=== PATIENT | male | born 1975 | race Caucasian/White ===

== ENCOUNTER 2019-03-04 18:37 | Inpatient (IN) | payer OTHER ==
[~2019-03-04] VITALS: Ht 185.4 cm; Wt 74.1 kg
--- NOTE | 2019-03-04 19:07 | NUR ---
Patient came in to the ER c/o chest pain sharp, x 3 days, on room air breathing evenly and unlabored. non radiating pain. Connected to the monitor and pulse ox. Kept comfortable, will continue to monitor accordingly.
--- NOTE | 2019-03-04 19:08 | NUR ---
blood drawned and sent to lab
[2019-03-04 19:23] LABS: BASOPHILS # (AUTO) 0.1 /CMM (0.0-0.2); BASOPHILS % (AUTO) 1.1 % (0.0-2.0); EOSINOPHILS % (AUTO) 1.5 % (0.0-6.0); HEMATOCRIT 44 % (39-51); HEMOGLOBIN 14.7 g/dL (13.5-17.5); LYMPHOCYTES # (AUTO) 2.4 /CMM (0.8-4.8); LYMPHOCYTES % (AUTO) 31.4 % (20.0-44.0); MEAN CORPUSCULAR HGB CONC 34 g/dl (31.0-36.0); MEAN CORPUSCULAR VOLUME 84 fL (80-96); MONOCYTES # (AUTO) 0.7 /CMM (0.1-1.30); MONOCYTES % (AUTO) 8.7 % (2.0-12.0); NEUTROPHILS # (AUTO) 4.4 /CMM (1.8-8.9); NEUTROPHILS % (AUTO) 57.3 % (43.0-81.0); PLATELET COUNT (AUTO) 268 /CMM (150-450); WHITE BLOOD COUNT (AUTO) 7.7 K/uL (4.3-11.0)
[2019-03-04] MEDS ORDERED: IV NS 0.9% 1,000 ML BAG IV ONE (19:30)
[2019-03-04 19:38] LABS: CARBON DIOXIDE 28 mmol/L (21-32); CHLORIDE 104 mmol/L (98-107); CREATININE 0.9 mg/dL (0.6-1.3); GLUCOSE 104 mg/dL (74-106); POTASSIUM 3.8 mmol/L (3.5-5.1); SODIUM SERUM 139 mmol/L (136-145); UREA NITROGEN, BLOOD 11 mg/dL (7-18)
--- NOTE | 2019-03-04 20:29 | NUR ---
TURNED IN MOVE SHEET
[2019-03-04] MEDS ORDERED: ASPIRIN 81 MG TAB.CHEW PO ONE (20:30)
[2019-03-04] MEDS ORDERED: ASPIRIN 81 MG TAB.CHEW ONE (20:30)
--- NOTE | 2019-03-04 20:44 | NUR ---
PT RESTING IN BED AWAKE NAD ALERT. REPORTED FEELING BETTER , VSS. REMAIENED ON CONT. MONITORING,.
--- NOTE | 2019-03-04 21:10 | NUR ---
CALLED FOR TELE BED
--- NOTE | 2019-03-04 21:24 | NUR ---
BED ASSIGNMENT TELE 320-2
--- NOTE | 2019-03-04 21:35 | NUR ---
report given to reny on third floor
[2019-03-04] MEDS ORDERED: MAG HYDROX/AL HYDROX/SIMETH 30 ML UDC PO PRN (22:00)
[2019-03-04] MEDS ORDERED: ZOLPIDEM TARTRATE 5 MG TABLET PO PRN (22:00)
[2019-03-04] MEDS ORDERED: ONDANSETRON HCL/PF 4 MG/2 ML VIAL IVP PRN (22:00)
[2019-03-04] MEDS ORDERED: ACETAMINOPHEN 325 MG TABLET PO PRN (22:00)
[2019-03-04] MEDS ORDERED: Z GUARD REMEDY 2 OZ OINT TP PRN (22:00)
[2019-03-04] MEDS ORDERED: HYDROCODONE/APAP 5/325MG 1 EACH TABLET PO PRN (22:00)
[2019-03-04] MEDS ORDERED: MAGNESIUM HYDROXIDE 30 ML UDC PO PRN (22:00)
[2019-03-04 23:05] VITALS: BP 118/71
--- NOTE | 2019-03-04 23:05 | NUR ---
RN Notes Admitted patient from ER via [place], awake, alert and oriented x4. Patient verbalized chest pain is very mild at this time, 2/10, pressure and tightness on chest as described, no radiating. Vital signs stable, on room air and tolerated well. Tele monitor attached which reads Sinus rhythm with heart rate at 73. Skin assessment done, clear and intact. Plan of care discussed with the patient and verbalized understanding. Kept comfortable and attended with call light within reach. Will continue to monitor patient.
[2019-03-04 23:10] VITALS: BP 118/71
[2019-03-05 04:00] VITALS: BP 101/55
--- NOTE | 2019-03-05 06:20 | NUR ---
RN Notes Patient denies chest pain, distress and discomfort within the shift. Vital signs stable. Telemonitor reads sinus rhythm with heart rate at 64. No significant change in condition noted. Ramesh be seen by cellular plastics cutter this AM. Will continue to monitor and endorse accordingly.
--- NOTE | 2019-03-05 07:20 | NUR ---
RN OPENING NOTES REPORT RECEIVED FROM ACCOUNT DIRECTOR RN. PT IS A&OX4 DENIES ANY SOB OR PAIN AT PRESENT MOMENT WILL CONTINUE TO MONITOR. BED IS LOCKED AND IN LOWEST POSITION WITH CALL LIGHT IN REACH PT ENCOURAGED TO USE CALL LIGHT.
[2019-03-05 07:35] LABS: BASOPHILS # (AUTO) 0.1 /CMM (0.0-0.2); BASOPHILS % (AUTO) 1.1 % (0.0-2.0); EOSINOPHILS % (AUTO) 3.2 % (0.0-6.0); HEMATOCRIT 41 % (39-51); HEMOGLOBIN 13.7 g/dL (13.5-17.5); LYMPHOCYTES # (AUTO) 2.3 /CMM (0.8-4.8); LYMPHOCYTES % (AUTO) 40.6 % (20.0-44.0); MEAN CORPUSCULAR HGB CONC 34 g/dl (31.0-36.0); MEAN CORPUSCULAR VOLUME 84 fL (80-96); MONOCYTES # (AUTO) 0.5 /CMM (0.1-1.30); MONOCYTES % (AUTO) 8.8 % (2.0-12.0); NEUTROPHILS # (AUTO) 2.7 /CMM (1.8-8.9); NEUTROPHILS % (AUTO) 46.3 % (43.0-81.0); PLATELET COUNT (AUTO) 247 /CMM (150-450); RED BLOOD CELL COUNT(AUTO) 4.87 MIL/uL (4.5-6.0); WHITE BLOOD COUNT (AUTO) 5.8 K/uL (4.3-11.0)
[2019-03-05 08:00] VITALS: BP 117/71
[2019-03-05 08:05] LABS: CALCIUM, SERUM 8.3 mg/dL (8.5-10.1); CREATININE 0.8 mg/dL (0.6-1.3); MAGNESIUM 1.8 mg/dL (1.8-2.4); PHOSPHORUS 3.3 mg/dL (2.5-4.9); POTASSIUM 3.9 mmol/L (3.5-5.1)
[2019-03-05] MEDS ORDERED: IV NS 0.9% 500 ML IV ONE (10:00)
[2019-03-05] MEDS ORDERED: METOPROLOL TARTRATE INJ 5 MG/5 ML AMPUL IVP ONE (10:00)
[2019-03-05] MEDS ORDERED: NITROGLYCERIN 0.4 MG/TAB BOTTLE SL ONE (10:00)
[2019-03-05] MEDS ORDERED: METOPROLOL TARTRATE INJ 5 MG/5 ML AMPUL ONE ×2 (11:15→12:11)
[2019-03-05] MEDS ORDERED: NITROGLYCERIN 0.4 MG/TAB BOTTLE ONE (11:27)
[2019-03-05] MEDS ORDERED: CT SWABBABLE VALVE TRANS SET 1 EA INFUS.SET MC ONE (11:27)
[2019-03-05] MEDS ORDERED: IOHEXOL-350 100 ML VIAL IV ONE (11:27)
[2019-03-05] MEDS ORDERED: IV NS 0.9% 250 ML IV ONE (11:28)
--- NOTE | 2019-03-05 12:38 | NUR ---
RN NOTE 1200: Patient A/Ox4, aware for the procedure, Metoprolol not given prior for SBP 100's. 1238: Done with procedure, tolerated. Received 5doses of Metoprolol, Nitro 0.4mg SL and 400 total bolus for SBP low 110's per IR MD to be able to give Nitro. VSS post CTA. Informed patient SE may have headache, verbalized understanding. Encouraged to increase OFI.
[2019-03-05 12:49] VITALS: BP 113/66
--- NOTE | 2019-03-05 16:54 | NUR ---
RN D/C NOTES PT IV REMOVED AND BELONGINGS LIST SIGNED PT DENIED ANY SOB BUT DOES STATE HE HAS A HEADACHE ENCOURAGED PT TO INCREASE INTAKE OF FLUIDS. PT GOT DRESSED AND WALKED OUT WITH PACKET. PT STATES HIS WILL BE HOME.
== END 2019-03-05 16:35 | disposition home or self-care (01) | DRG 243 ==
LOC: ER 18:41 → TELE 22:56 → MED 03-05 09:07
PROVIDERS: ADMIT Family Medicine; ATTEND Nurse Practitioner Acute Care
DX: K21.9 Gastro-esophageal reflux disease without esophagitis (principal); E66.9 Obesity, unspecified; E78.5 Hyperlipidemia, unspecified; Z68.21 Body mass index [BMI] 21.0-21.9, adult
CPT/HCPCS: 36415; 71045-TC; 75574; 80048-TC; 80061-TC; 83735-TC; 84100-TC; 84484-TC; 85025-TC; 85378-TC; 87081-TC; 93307-TC; G0378; J3490; J7030; J7040; J7050; Q9967